=== PATIENT | male | born 1950 | race Caucasian/White ===

== ENCOUNTER 2017-08-17 07:27 | Inpatient (IN) | payer MEDICARE, OTHER ==
[~2017-08-17 07:27] MED LIST: ACETAMINOPHEN 1,000 MG/100 ML BTL IV ONE; CELECOXIB 100 MG CAPSULE PO ONE; VANCOMYCIN HCL 1,000 MG in DEXTROSE 5 % IN WATER 250 ML IVPB ONE
[2017-08-17] MEDS ORDERED: FAMOTIDINE 20MG TABLET PO ONE (13:15)
[2017-08-17] MEDS ORDERED: METOCLOPRAMIDE 10 MG TABLET PO ONE (13:15)
[2017-08-17] MEDS ORDERED: MECLIZINE 25 MG TABLET PO ONE (13:15)
[2017-08-21] MEDS ORDERED: ACETAMINOPHEN 1,000 MG/100 ML BTL IV ONE (06:00)
[2017-08-21] MEDS ORDERED: SCOPOLAMINE 1 PATCH TDSY TD ONE (06:00)
[2017-08-21] MEDS ORDERED: METOCLOPRAMIDE 10 MG TABLET PO ONE (06:00)
[2017-08-21] MEDS ORDERED: FAMOTIDINE 20MG TABLET PO ONE (06:00)
[2017-08-21] MEDS ORDERED: VANCOMYCIN HCL 1,000 MG in DEXTROSE 5 % IN WATER 250 ML IVPB ONE ×2 (06:00)
[2017-08-21] MEDS ORDERED: CELECOXIB 100 MG CAPSULE PO ONE (06:00)
[2017-08-21 12:05] LABS: ABO GROUP A; ANTIBODY SCREEN NEGATIVE (NEGATIVE); RH TYPE POSITIVE
[2017-08-21] MEDS ORDERED: AL HYDROX/MAG HYDROX 30ML UD PO PRN (13:15)
[2017-08-21] MEDS ORDERED: BISACODYL 10 MG SUPP RC PRN (13:15)
[2017-08-21] MEDS ORDERED: NALOXONE 0.4 MG/1 ML VIAL IVP PRN (13:15)
[2017-08-21] MEDS ORDERED: DEXTROSE 5 % AND 0.9 % NACL 1,000 ML IV PRN (13:15)
[2017-08-21] MEDS ORDERED: METOCLOPRAMIDE HCL 10 MG/2 ML VIAL IVP PRN (13:15)
[2017-08-21] MEDS ORDERED: HYDROCODONE/APAP 7.5/325MG TABLET PO PRN ×2 (13:15)
[2017-08-21] MEDS ORDERED: HYDROMORPHONE HCL 2 MG/ML VIAL IM PRN ×2 (13:15)
[2017-08-21] MEDS ORDERED: MAGNESIUM HYDROXIDE 30 ML UDC PO PRN (13:15)
[2017-08-21] MEDS ORDERED: ZOLPIDEM TARTRATE 5 MG TABLET PO PRN (13:15)
[2017-08-21] MEDS ORDERED: TRAMADOL HCL 50 MG TABLET PO PRN ×2 (13:15)
[2017-08-21] MEDS ORDERED: ACETAMINOPHEN W/ CODEINE 300MG/60MG TABLET PO PRN ×2 (13:15)
[2017-08-21] MEDS ORDERED: ACETAMINOPHEN W/ CODEINE 300MG/30MG TABLET PO PRN ×2 (13:15)
[2017-08-21] MEDS ORDERED: KETOROLAC 30 MG/ML VIAL IVP PRN ×2 (13:15)
[2017-08-21] MEDS ORDERED: VANCOMYCIN HCL 1,000 MG in 0.9 % SODIUM CHLORIDE 250ML 250 ML IVPB SCH (13:15)
[2017-08-21] MEDS ORDERED: MORPHINE SULFATE 5 MG/ML PFS IVP PRN ×4 (13:15)
[2017-08-21] MEDS ORDERED: ACETAMINOPHEN 325 MG TAB PO PRN (13:15)
[2017-08-21] MEDS ORDERED: ONDANSETRON HCL IV 4 MG/2 ML VIAL IVP PRN (13:15)
[2017-08-21] MEDS ORDERED: HYDROCODONE/APAP 5/325MG TABLET PO PRN ×2 (13:15)
[2017-08-21] MEDS ORDERED: *PACU ONLY* KETAMINE HCL 10 MG/ML (20ML) VIAL IV ONE (14:00)
[2017-08-21] MEDS ORDERED: MIDAZOLAM HCL 2MG/2ML VIAL IV ONE (14:00)
[2017-08-21] MEDS ORDERED: HYDROMORPHONE HCL 2 MG/ML VIAL IV ONE (14:00)
[2017-08-21] MEDS ORDERED: FENTANYL PF 100MCG/2ML VIAL IV ONE (14:00)
[2017-08-21] MEDS ORDERED: ONDANSETRON HCL IV 4 MG/2 ML VIAL IVP ONE ×2 (14:00→20:30)
[2017-08-21] MEDS ORDERED: PROPOFOL 10 MG/ML VIAL IV ONE (14:00)
[2017-08-21] MEDS ORDERED: DIPHENHYDRAMINE HCL IV 50 MG/ML VIAL IVP ONE (14:00)
--- NOTE | 2017-08-21 17:24 | Rehab Evaluation ---
Patient Information - Patient Information Diagnosis: R total knee arthroplasty secondary to severe OA Ordered Treatment: OT Evaluate and Treat Status: Initial Evaluation Surgery: Yes Date of Surgery: 08/21/17 Past Medical/Surgical Hx: PAST MEDICAL/SURGICAL HISTORY Past Surgical History LTKA umbilical hernia tonsils left shoulder ORIF c scope x's 2 PMH - Respiratory Hx Respiratory Disorders Yes Hx Bronchitis Yes Hx Pneumonia Yes Hx Sleep Apnea Yes: possibly Hx of CPAP No PMH - Cardiovascular Hx Cardiovascular Disorders Yes Hx Hypertension Yes: on meds good control Exercise Tolerance Fair Residual Deficits from CVA No PMH - Neuro Hx Neurological Disorders Yes Hx Cerebrovascular Accident Yes: 11 yrs ago 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 reported being Ind. with all I/ADL's prior to sx.) Social History: Detail (Pt. lives in a single story house with a ramp to enter ( bilateral hand rails). Bathroom has a raised toilet seat and tub/shower combo with tub bench, HH shower head, and grab bar. Pt. did not use any mobility devices prior to today's sx. Pt. has family available to assist if needed.) Precautions: [place], Fall (Pt. is currently at increased fall risk while standing (may be d/t medication side-effects), was unsteady (LOB but self- corrected).), Other (WBAT RLE) - Time With Patient Total Time Spent With Patient (Min): 20 Objective Data - Pain Pain Present: No (Pt. reported he does not have pain currently.) - Mental Status Patient Orientation: Oriented x3 - Visual Perception Appears within normal limits for therapeutic activities - ROM Not within normal limits (Pt. reported hx of L shd dislocation. BUE shd flex and abd lacking approximately 30 degrees, but pt. uses compensatory movements and it does not appear to effect function. IR, ER, elbow, forearm, wrist, and digit BUE WNL.) - Strength/Tone Within normal limits (BUE shd abd 4+/5 MMT, shd flex, biceps, and triceps 5/5.) - Coordination Appears within normal limits for therapeutic activities - Bed Mobility Independent - Transfers Independent (Sit<>stand EOB to walker CGA d/t feeling light headed and wobbly.) - Balance Balance Sitting: Good Balance Standing: Fair - Sensation Intact (BUE light touch intact) - ADL's/IADL's Detail (Pt. demo. ability to doff RLE sock, but required min assist to don. Educ. was provided in adaptive dressing techniques, and use of pipe tester. Pt. stated he has a pipe tester at home, but typically doesn't use it.) Therapy Assessment - Therapy Assessment Detail (In-pt. OT services not recommended at this time. Pt. demo. understanding of adaptive dressing techniques, and use of pipe tester. Pt. would benefit from use of pipe tester during recovery to maximize independence and safety. Pt. has a positive support system, with assistance if needed, and a good environmental set-up.) Patient Education - Patient Education Teaching Topic: Equipment Use Response: Verbalize Understanding Teaching Method: Discussion Teaching Recipient: Patient Barriers To Learning: None Prognosis - Prognosis Good Plan - Plan Occupational Therapy Plan: D/C from OT services. Educ. was provided to call rehab dept. if pt. has questions after arriving home.
--- NOTE | 2017-08-21 17:26 | Rehab Evaluation ---
Patient Information - Patient Information Diagnosis: Knee OA Ordered Treatment: PT Evaluate and Treat Status: Initial Evaluation Surgery: Yes (R TKA) Date of Surgery: 08/21/17 Past Medical/Surgical Hx: PAST MEDICAL/SURGICAL HISTORY Past Surgical History LTKA umbilical hernia tonsils left shoulder ORIF c scope x's 2 PMH - Respiratory Hx Respiratory Disorders Yes Hx Bronchitis Yes Hx Pneumonia Yes Hx Sleep Apnea Yes: possibly Hx of CPAP No PMH - Cardiovascular Hx Cardiovascular Disorders Yes Hx Hypertension Yes: on meds good control Exercise Tolerance Fair Residual Deficits from CVA No PMH - Neuro Hx Neurological Disorders Yes Hx Cerebrovascular Accident Yes: 11 yrs ago 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 The patient's home has a ramp to enter with railings on each side. The patient has a tub/shower combination with a transfer chair and handheld shower head, and has grab bars present. He has an elevated toilet seat, no grab bars, but says that the bathroom counter can be used to help assist to stand. He will be using a 2WW for ambulation upon discharge from [facility].) Precautions: Other (WBAT on R) - Time With Patient Total Time Spent With Patient (Min): 30 Treatment Procedures: Detail (PT Initial Evaluation) Subjective Information - Subjective Information Per Patient (The patient had no complaints of dizziness, nausea, or fatigue. Stated he had feeling in his feet.) Objective Data - Pain Pain Present: No Pain Intensity: 0 Pain Scale Used: Numeric (1 - 10) - Mental Status Patient Orientation: Oriented x3 - ROM Within normal limits (R limited as expected s/p R TKA. L was not formally assessed, but was within functional limits for activities completed at intial evaluation.) - Strength/Tone Within normal limits (R limited as expected s/p R TKA. L was not formally assessed, but was within functional limits for activities completed at intial evaluation.) - Bed Mobility Independent (Independent with supine to sit and sit to supine) - Transfers Independent (Sit to stand was Independent but required UE support on walker. Stand to sit was independent.) - Balance Balance Sitting: Good (No LOB while sitting at the bedside) Balance Standing: Fair (Had minor LOB with first few steps during ambulation, but recovered on his own. Did not have any other LOB during ambulation, but had some unsteadiness with gait.) - Sensation Intact - Gait Detail (WBAT on R and use of 2WW. The patient was able to ambulate from Room 27 to Room 25 and back (about 40 feet total), and required supervision only. Had minor LOB with first 3 steps, but recovered on his own. He showed some slight unsteadiness, but appeared to be due to anethesia.) Therapy Assessment - Therapy Assessment Detail (The patient was independent with bed mobility, transfers and ambulation with assistive device. The patient declined stairs since he has a ramp at home. The patient was able to identify the proper stair climbing technique. The patient was independent with HEP.) Patient Education - Patient Education Teaching Topic: Exercise/Activity (HEP was instructed/reviewed, which included: Quad sets, Heel Slides/Hamstring sets, glute. sets, SLR, and ankle pumps. He was instructed to complete 10 reps later this evening, and 1-2x/day upon discharge.) Response: Return Demonstration, Verbalize Understanding Teaching Method: Discussion, Demonstration Teaching Recipient: Patient Barriers To Learning: None Problem List - Problem List Physical Therapy Problem List: Detail (1) Decreased strength on R as expected s/ p R TKA 2) Decreased ROM as expected s/p R TKA 3) Minimal unsteadiness with gait activities) Goals - Goals Physical Therapy Goals: No further inpatient PT is required at this time as the patient has completed all inpatient PT skills. Prognosis - Prognosis Good Plan - Plan Physical Therapy Plan: No further inpatient PT is required at this time as the patient has completed all inpatient PT skills.
[2017-08-21] MEDS: DIPHENHYDRAMINE HCL 25 MG CAPSULE PO PRN ×2 (17:28→22:49)
[2017-08-21] MEDS ORDERED: HYDROXYZINE PAMOATE 25 MG CAPSULE PO PRN (20:10)
[2017-08-21] MEDS ORDERED: ATORVASTATIN 20 MG TABLET PO SCH (22:00)
[2017-08-21] MEDS ORDERED: ROPINIROLE HCL 1 MG TABLET PO SCH (22:00)
[2017-08-21] MEDS: FERROUS SULFATE 325 MG TAB PO SCH (22:49)
[2017-08-21] MEDS: DOCUSATE SODIUM 100 MG CAPSULE PO SCH (22:49)
[2017-08-22 06:25] LABS: HEMATOCRIT 39.7 % (42.0-52.0); HEMOGLOBIN 13.3 gm/dl (14.0-18.0)
[2017-08-22] MEDS: DIPHENHYDRAMINE HCL 25 MG CAPSULE PO PRN ×2 (06:29→09:35)
[2017-08-22] MEDS ORDERED: VANCOMYCIN HCL 1,000 MG in 0.9 % SODIUM CHLORIDE 250ML 250 ML IVPB SCH (09:00)
[2017-08-22] MEDS: FERROUS SULFATE 325 MG TAB PO SCH (10:00)
[2017-08-22] MEDS ORDERED: CELECOXIB 100 MG CAPSULE PO SCH (10:00)
[2017-08-22] MEDS ORDERED: RIVAROXABAN 10 MG TABLET PO SCH (10:00)
[2017-08-22] MEDS ORDERED: LISINOPRIL 20 MG TABLET PO SCH (10:00)
[2017-08-22] MEDS ORDERED: ROPINIROLE HCL 1 MG TABLET PO SCH (10:00)
[2017-08-22] MEDS ORDERED: METOPROLOL SUCC 25 MG TAB.ER PO SCH (10:00)
[2017-08-22] MEDS: DOCUSATE SODIUM 100 MG CAPSULE PO SCH (10:00)
--- NOTE | 2017-08-22 10:00 | Operative Note ---
DATE OF SURGERY: 08/21/2017. PREOPERATIVE DIAGNOSIS: ENDSTAGE RIGHT KNEE ARTHROSIS. POSTOPERATIVE DIAGNOSIS: ENDSTAGE RIGHT KNEE ARTHROSIS. OPERATION: Right total knee arthroplasty. SURGEON: Greg Marcus M.D. ANESTHESIA: Spinal, Carey Sheehan CRNA. COMPLICATIONS: None. ESTIMATED BLOOD LOSS: Minimal. TOURNIQUET TIME: About 70 minutes. OPERATIVE FINDINGS: [id number] arthrosis and erosion. COMPONENTS PLACED: [employer] II Oxinium total knee arthroplasty system, size 8 femoral component, size 11 thick tibial poly insert, a size 8 tibial component, a 35 mm cemented patellar component, and 2.0 gm of vancomycin and cement. INDICATIONS: This is an 66-year-old male who has had persistent pain and dysfunction in his knee for several years. He is status post left total knee arthroplasty done by myself and now presents for this procedure on the right. I explained to him all risks and benefits of surgery in detail for the diagnosis including but not limited to infection, nerve injury, vessel injury, persistent pain, stiffness, numbness and tingling in his knee, periprosthetic fracture, need for resection arthroplasty should the components become infected or loosened, blood clot, and the need for further procedures. All of his questions were answered. The treatment and course were outlined and he agreed to proceed. PROCEDURE: The patient brought to the operating room. He was placed in the supine position and was prepared for surgery. Spinal anesthesia was induced. His right lower extremity and knee were prepped and draped in sterile fashion. The right knee was prepped again with ChloraPrep and draped. Intraoperative time out was performed. Next, the leg was exsanguinated with Esmarch and the knee was flexed. The tourniquet was inflated to 250 mm Hg pressure. Next, the skin and subcutaneous tissues were dissected down. Incised the capsule medially around the medial border to the tibial tubercle. Incised the vastus medialis in line with its fibers in a mid vastus approach. I partially resected the retropatellar fat and everted the patella. I flexed the knee and elevated the capsule subperiosteally and posteromedially. He had severe erosive medial compartment arthrosis throughout and large osteophytes. Next I drilled an intracondylar drill hole and inserted intramedullary guide jose. I used the 60-degree cutting block to line up the distal femoral condyles in the +2.0 mm position. I pinned it in place and cut the distal femoral condyles. Next I placed the sizing jig on the distal femoral condyle and sized it to be on size 8. Through the previously-placed holes I then inserted the size 8 cutting jig. We dialed in the anterior cut anteriorly +2.0 mm so it would come out flush without notching. We cut that and it was a good, flush cut. We then pinned it and cut the remaining chamfer cuts in the usual fashion. I placed a trial size 8 femoral component, centered it , and pinned it. I removed osteophytes off the periphery and cleared his femoral resection collet after we pinned the trial component in place. I reamed out with a box osteotome the cruciate bone block. Next, attention was turned to the tibia. I exposed the proximal tibia and seated the spikes in the intertubercular groove two fingerbreadths distal to the anterior tibial cortex. Referenced for a 7.0 mm cut off the higher lateral plateau. We pinned the cutting jig in place. We rechecked alignment of the cutting jig using a drop jose, centering it on the tibial anatomic access. We then cross pinned it to complete its fixation and then cut the tibia. Next, we removed osteophytes off the posterior femoral condyles using a curved osteotome and checked the flexion and extension gaps. Placed up to a size 11. This allowed for 2.0 to 3.0 mm of varus and valgus laxity in flexion and extension. Overall alignment in flexion and extension was anatomic valgus orientation with alignment rods centered on the hip joint and ankle joint. Next we took the knee in flexion and sized the tibial baseplate to be size 8. We replaced all trial components and reset. Took the knee in extension and placed the alignment jose centered on the hip joint and ankle joint. Marked electrocautery colindres off the laser colindres on the tibial baseplate. Attention was then turned to the patella. We then measured the patella to be 26 mm. I set the cutting jig at 17 mm to allow for a 9.0 mm thick poly insert. Cut the patella and measured it. It measured right on 17. We chamfered off the lateral patellar facet. I medialized and sized it to be 35 mm. I drilled three peg holes and mixed cement. I did a trial range of motion. We had full extension and flexion to 140 to 150 degrees. We had good symmetric flexion and extension gaps, and the patella tracked nicely handsfree. Next I took the knee in flexion. I seated the tibial baseplate off the previously placed electrocautery colindres. I pinned it in place. We then reamed out and keel punched the keel hole. Next we copiously irrigated all bony surfaces and pulse lavaged with antibiotic solution. I changed gloves and brought in a clean sheet. I placed a bone plug in the femoral canal hole. I precoated both surfaces and then impacted down down the tibial component and then the femoral component. I then placed the trial poly liner and removed excess cement. I held the knee in extension and clamped down the patellar component until the cement hardened. Once the cement hardened, I took the knee in flexion. I distracted the knee with a bone hook and sponge. I removed the trial poly inserted and irrigated. Next I removed any excess cement around the edge of the components. We then injected several sticks of 0.5% Marcaine with epinephrine, 2.0 gm tranexamic acid, and Exparel in the periarticular tissues in the capsule medial and lateral periosteum and vastus medialis subcutaneous area throughout the periphery of the entirety of the knee from deep to superficial. Next, we inserted the real tibial poly insert and verified it was interlocked medially and laterally. I found our range of motion was still the same. Next we closed the knee in flexion. The capsule and the vastus was closed with running #2 Quill. I irrigated again and closed the skin deep with #2-0 Vicryl and a zip line. A sterile dressing was applied. The patient tolerated the procedure well. No intraoperative complications. Sponge, needle, and blade counts correct. Recovery room stable, neurovascularly intact. He will be discharged likely tomorrow to home with a home therapy nurse. He will follow up in two weeks. cc: Estephania Mancini D.O. JOB NUMBER: [id number] MTDD
[2017-08-22] MEDS ORDERED: BUPIVACAINE 0.5% W/EPI MPF 30 ML VIAL IVP ONE (15:02)
[2017-08-22] MEDS ORDERED: TRANEXAMIC ACID 1,000 MG/10 ML ML IV ONE (15:02)
[2017-08-22] MEDS ORDERED: VANCOMYCIN HCL 1 GM VIAL IVPB ONE (15:02)
[2017-08-22] MEDS ORDERED: BUPIVACAINE 0.5% (5MG/ML) PF 30ML VIAL IVP ONE (15:02)
[2017-08-23] MEDS ORDERED: METFORMIN 500 MG TABLET PO SCH (08:00)
== END 2017-08-22 15:03 | disposition home or self-care (01) | DRG 470 ==
LOC: MEDSURG 08-21 11:05
PROVIDERS: ADMIT Orthopaedic Surgery; ATTEND Orthopaedic Surgery
PROC: 0SRC069 Replacement of Right Knee Joint with Oxidized Zirconium on Polyethylene Synthetic Substitute, Cemented, Open Approach (ICD-10-PCS; principal; 2017-08-21 13:00)
DX: M17.11 Unilateral primary osteoarthritis, right knee (principal)
CPT/HCPCS: 36416; 82948; 85014; 85018; 86850; 86900; 86901; J1200; J1885; J2405; J7050; J7060